=== PATIENT | female | born 1950 | race Hispanic/Latino ===

== ENCOUNTER 2017-05-27 09:04 | Outpatient (CLI) | payer OTHER ==
--- NOTE | 2017-05-27 15:09 | Mammography Report ---
BILATERAL DIGITAL SCREENING MAMMOGRAM with CAD: 05/27/17 09:04:00 CLINICAL: Routine screening. COMPARISON:02/25/16 FINDINGS: The breasts are mostly fatty. Stable left upper outer parenchymal asymmetry. No mass, architectural distortion or suspicious calcifications. IMPRESSION: No mammographic evidence of malignancy. BI-RADS CATEGORY: 2 -- Benign RECOMMENDATION: Routine mammographic screening in one year. COMMENT: Patient follow-up letters are generated by our [employer] application.
== END 2017-05-27 09:05 | disposition home or self-care (01) ==
LOC: MAMMO 09:04
DX: Z12.31 Encounter for screening mammogram for malignant neoplasm of breast (principal)
CPT/HCPCS: 77067; G0202

== ENCOUNTER 2019-02-22 09:19 | Outpatient (CLI) | payer OTHER ==
--- NOTE | 2019-02-22 14:11 | Mammography Report ---
BILATERAL DIGITAL SCREENING MAMMOGRAM WITH CAD INDICATION: Screening. COMPARISONS: 05/27/2017 and 05/10/2018 FINDINGS: Craniocaudal and mediolateral oblique views of both breasts were obtained using 2-D digital acquisition. In addition to standard review, the examination was analyzed for possible abnormalities using a computer-assisted detection device (iCAD). The breasts are almost entirely fatty. A left upper outer parenchymal asymmetry is unchanged compared to previous exams. A triangular marker is placed in the left breast where the patient feels a lump but there is no mammographic finding to correlate with the marker. No mass or suspicious calcifications or architectural distortion of either breast. IMPRESSION: Negative mammogram. However, since the patient feels a lump, recommend recall for a left diagnostic m ammogram to include spot compression views at the palpable marker and a left targeted breast ultrasou nd. BI-RADS CATEGORY 0: INCOMPLETE - NEED ADDITIONAL IMAGING EVALUATION AND/OR PRIOR MAMMOGRAMS FOR COMP ARISON Information is entered into a reminder system for a target due date for the next mammogram. The resul ts and recommendations were sent to the patient by mail. Signer Name: Madhav Worley MD Signed: 02/22/2019 2:07 PM Workstation Name: [id number]
== END 2019-02-22 09:20 | disposition home or self-care (01) ==
LOC: MAMMO 09:19
DX: Z12.31 Encounter for screening mammogram for malignant neoplasm of breast (principal); I10 Essential (primary) hypertension; K21.9 Gastro-esophageal reflux disease without esophagitis
CPT/HCPCS: 77067

== ENCOUNTER 2019-02-23 09:02 | Outpatient (CLI) | payer OTHER ==
--- NOTE | 2019-02-23 11:01 | Mammography Report ---
LEFT DIGITAL DIAGNOSTIC MAMMOGRAM WITHOUT CAD LEFT LIMITED BREAST ULTRASOUND INDICATION: Recall to evaluate a palpable finding identified at screening. TECHNIQUE: Digital left mammographic imaging was performed. Spot compression views were obtained. Li mited ultrasound was performed. COMPARISON: 02/22/2019 screening mammogram FINDINGS: Breast Density: The breast is mostly fatty. There is no evidence of dominant mass, suspicious calcifications or architectural distortion. Mammogr aphic asymmetries are unchanged compared to previous exams not appear to correlate with the palpable lump. Ultrasound Findings: Targeted ultrasound evaluation was performed of the area of interest. A superf icial oval anechoic cyst at 4:00 6 cm from the nipple measures 6 x 4 x 5 mm. A second adjacent comple x cyst versus solid superficial mass correlates with the palpable finding and it measures 5 x 3 x 5 m m. It has low-level internal echoes and no findings to suggest that it is a lymph node. IMPRESSION: A 5 mm complex cyst versus solid nodule at 4:00 6 cm from the nipple. Recommend ultrasoun d-guided needle aspiration/biopsy to exclude malignancy. I discussed the findings and recommendation for needle aspiration/biopsy with the patient at the time of the exam. BI-RADS Category 4: Suspicious for Malignancy. A "normal" or negative report should not discourage follow up or biopsy of a clinically significant f inding. A written summary of these findings will be mailed to the patient. The patient will be entered into a mammography reporting system which will generate a reminder letter for the patient's next appointmen t at the appropriate interval. FURTHER INFORMATION: According to the [employer], yearly mammograms are recommend ed starting at age 40 and continuing as long as a woman is in good health. Breast MRI is recommended for women with an approximately 20-25% or greater lifetime risk of breast cancer, including women wi th a strong family history of breast or ovarian cancer and women who have been treated for Hodgkin's disease. Signer Name: Madhav Worley MD Signed: 02/23/2019 10:57 AM Workstation Name: [id number]
== END 2019-02-23 09:03 | disposition home or self-care (01) ==
LOC: MAMMO 09:02
DX: N60.02 Solitary cyst of left breast (principal)

== ENCOUNTER 2019-03-04 08:17 | Outpatient (CLI) | payer OTHER ==
--- NOTE | 2019-03-04 09:44 | Ultrasound Report ---
LEFT BREAST ULTRASOUND HISTORY: She presented for ultrasound-guided aspiration of a palpable complex cyst. COMPARISON: 02/23/2019 FINDINGS: Targeted ultrasound of the left breast at 4:00 4 to 5 cm from the nipple demonstrated sever al benign cysts with the largest measuring 8 x 4 x 6 mm. The previously identified superficial palpab le complex cyst has become almost completely anechoic and measures 5 x 3 x 5 mm. No suspicious findin g. IMPRESSION: Benign cysts and no suspicious finding. The palpable cyst has benign features such that aspiration is not necessary. Clinical follow-up and routine mammographic screening. BIRADS 2: Benign Signer Name: Madhav Worley MD Signed: 03/04/2019 9:39 AM Workstation Name: [id number]
== END 2019-03-04 08:18 | disposition home or self-care (01) ==
LOC: SPVWC 08:17
DX: N60.02 Solitary cyst of left breast (principal); I10 Essential (primary) hypertension; K21.9 Gastro-esophageal reflux disease without esophagitis

== ENCOUNTER 2021-04-26 12:42 | Outpatient (CLI) | payer MEDICARE ==
--- NOTE | 2021-04-29 12:03 | Mammography Report ---
DIGITAL SCREENING MAMMOGRAM WITH CAD, 04/26/2021 CLINICAL INFORMATION / INDICATION: Routine screening mammography. Z12.31 TECHNIQUE: Digital bilateral 2D mammography was obtained in the craniocaudal and mediolateral obliqu e projections. This examination was interpreted with the benefit of Computer-Aided Detection analysis . COMPARISON: 02/22/2019 and 01/16/2020. FINDINGS: Breast Density: The breasts are almost entirely fatty. No dominant mass, suspicious calcifications, or architectural distortion in the right breast. Mild asymmetric breast tissue/benign-appearing nodularity in the left lateral breast has not changed. Benign-appearing scattered calcifications are also present in the left breast. IMPRESSION: No mammographic evidence of malignancy. Follow up recommendation: Routine yearly BI-RADS Category 2: Benign. A "normal" or negative report should not discourage follow up or biopsy of a clinically significant f inding. A written summary of these findings will be mailed to the patient. The patient will be entered into a mammography reporting system which will generate a reminder letter for the patient's next appointmen t at the appropriate interval. The [employer] recommends yearly mammograms starting at age 40 and continuing as l corrina as a woman is in good health. Breast MRI is recommended for women with an approximate 20-25% or greater lifetime risk of breast cancer, including women with a strong family history of breast or ova marybel cancer or who have been treated for Hodgkin's disease. Signer Name: Omar Townsend MD Signed: 04/29/2021 11:58 AM Workstation Name: [id number]
== END 2021-04-26 12:43 | disposition home or self-care (01) ==
LOC: MAMMO 12:42
PROVIDERS: ATTEND Obstetrics & Gynecology
DX: Z12.31 Encounter for screening mammogram for malignant neoplasm of breast (principal)
CPT/HCPCS: 77067

== ENCOUNTER 2021-05-28 10:08 | Outpatient (CLI) | payer MEDICARE ==
--- NOTE | 2021-05-29 13:43 | Mammography Report ---
DEXA BONE DENSITY SCAN INDICATION: HIGH RISK FOR OSTEOPOROSIS Z91.89, postmenopausal COMPARISON: 05/10/2018 LUMBAR SPINE (L1-L4): Bone mineral density (BMD) is 1.087 g/cm2. T-score is 0.4 (standard deviations of Young Adult mean). Z-score is 2.4 (standard deviations of Age Matched mean). RIGHT FEMORAL NECK: Bone mineral density (BMD) is 0.637 g/cm2. T-score is -1.9 (standard deviations of Young Adult mean). Z-score is -0.2 (standard deviations of Age Matched mean). DENSITOMETRY TRENDS: Lumbar change from prior study: Increase 1.8%. Femoral neck mean change from previous study: Decrease 9.4%. IMPRESSION: 1. WHO Classification: Osteopenia. Fracture Risk: Increased. Signer Name: Octavio Tolbert MD Signed: 05/29/2021 1:39 PM Workstation Name: [id number]
== END 2021-05-28 10:09 | disposition home or self-care (01) ==
LOC: SPVWC 10:08
PROVIDERS: ATTEND Obstetrics & Gynecology
DX: M85.88 Other specified disorders of bone density and structure, other site (principal); Z91.89 Other specified personal risk factors, not elsewhere classified
CPT/HCPCS: 77080